=== PATIENT | female | born 2000 | race African-American/Black ===

== ENCOUNTER 2022-11-11 09:07 | Emergency (ER) | payer MEDICAID ==
[~2022-11-11] VITALS: Ht 162.6 cm; Wt 72.0 kg
[2022-11-11 09:17] VITALS: BP 109/70; PULSE 109; RESP 20; TEMP 98.5; O2SAT 99
== END 2022-11-11 11:40 | disposition left against medical advice (07) ==
LOC: ER 09:22
DX: O02.1 Missed abortion (principal); O26.892 Other specified pregnancy related conditions, second trimester; O03.9 Complete or unspecified spontaneous abortion without complication; Z53.21 Procedure and treatment not carried out due to patient leaving prior to being seen by health care provider; Z3A.20 20 weeks gestation of pregnancy
CPT/HCPCS: 99281